=== PATIENT | female | born 1995 | race Caucasian/White ===

== ENCOUNTER 2023-05-20 16:13 | Emergency (ER) | payer OTHER ==
[2023-05-20 16:23] VITALS: BP 131/74; PULSE 80; RESP 16; TEMP 98; BMI 60.2
[2023-05-20] MEDS ORDERED: IBUPROFEN 600 MG TABLET (FP) PO ONE ×2 (17:21→17:23)
== END 2023-05-20 19:36 | disposition home or self-care (01) ==
LOC: JERFT 16:13
DX: M79.631 Pain in right forearm (principal); R20.2 Paresthesia of skin; W22.8XXA Striking against or struck by other objects, initial encounter
CPT/HCPCS: 73070-TC-RT-FY; 73090-TC-RT-FY; 93971; 99284-25